=== PATIENT | female | born 1975 | race Caucasian/White ===

== ENCOUNTER 2021-04-17 15:52 | Outpatient (CLI) | payer OTHER, SELFPAY ==
--- NOTE | 2021-04-17 16:07 | XRR_ITS ---
PROCEDURE INFORMATION: Exam: XR Chest Exam date and time: 04/17/2021 4:07 PM Age: 46 years old Clinical indication: Cough and wheezing; Additional info: Cough, wheezing TECHNIQUE: Imaging protocol: XR of the chest. Views: 2 views. COMPARISON: No relevant prior studies available. FINDINGS: Lungs: Hyperinflation and mild interstitial prominence, without acute airspace disease. Pleural spaces: No pleural effusion. Heart/Mediastinum: Normal configuration of the heart. Bones/joints: Mild degenerative change. XR/XR chest 2V* [id number] IMPRESSION: Hyperinflation and mild interstitial prominence, without acute airspace disease.
== END 2021-04-17 15:53 | disposition home or self-care (01) ==
PROVIDERS: PCP Nurse Practitioner Family; Visit Provider Otolaryngology
DX: J30.1 Allergic rhinitis due to pollen (principal); R05 Cough; R06.2 Wheezing
CPT/HCPCS: 71046

== ENCOUNTER → 2021-05-19 18:50 | Outpatient (BNVA) | payer OTHER, SELFPAY | PROVIDERS: PCP Nurse Practitioner Family; Visit Provider Registered Nurse Neonatal Intensive Care | DX: Z20.822 Contact with and (suspected) exposure to COVID-19 (principal) | CPT/HCPCS: 87635 ==

== ENCOUNTER → 2023-05-05 09:25 | Outpatient (BNVA) | payer OTHER, SELFPAY | PROVIDERS: PCP Nurse Practitioner Family; Referring Provider Nurse Practitioner Family; Visit Provider Student in an Organized Health Care Education/Training Program | DX: M79.642 Pain in left hand (principal); R22.32 Localized swelling, mass and lump, left upper limb | CPT/HCPCS: 73130 ==

== ENCOUNTER 2023-05-21 07:47 | Day surgery (SDC) | payer OTHER, SELFPAY ==
[2023-05-21] VITALS (7 sets, daily range): BP systolic 120–147; BP diastolic 59–79; PULSE 43–63; RESP 15–20; TEMP 36.1–36.3; O2SAT 97–100
--- NOTE | 2023-05-21 08:03 | W.PM.OPSUD ---
Surgery/Procedure H&P Update DATE OF PROCEDURE: May 21, 2023 DATE H&P PERFORMED: 05/05/23 CHANGES TO PREVIOUS DOCUMENTATION: None. No change in HPI visit from 05/05/2023. Patient has a left small finger mass/cyst. She understands needs and outs procedure the risk benefits and complications alternatives with surgery given that this has had continued pain and increased in size she wishes to have this removed. Understanding risk benefits complication alternatives with surgery elects proceed with surgical intervention all questions answered. Plan to proceed with a left small finger mass excision. PREOP DIAGNOSIS: Left Small Finger mass PRIMARY INDICATION FOR PROCEDURE: Left small finger mass/cyst PLANNED PROCEDURE: Operation Date: 05/21/23 09:20 Proposed Procedures p Left small finger mass excision 60049, R22.32(Left) - Jake Campbell DO
[2023-05-21] MEDS: sodium chloride 0.9% 1,000 ML 30 ML IV (08:14)
[2023-05-21] MEDS: ketorolac 30 mg/mL INJ IVP (08:15)
[2023-05-21] MEDS: acetaminophen 1,000 MG/100 ML PIGGYBACK 400 MG IV (08:16)
--- NOTE | 2023-05-21 08:20 | ANES.PREANE2 ---
Pre-Anesthetic Assessment Height/Weight: Height 1.65 m Weight 85.729 kg Temp Pulse Resp BP Pulse Ox O2 Del Method 97.3 F L 63 16 124/65 98 Room Air 05/21/23 07:58 05/21/23 07:58 05/21/23 07:58 05/21/23 07:58 05/21/23 07:58 05/21/23 07:58 Preop Diagnosis: Left Small Finger mass Operation Date: 05/21/23 09:20 Proposed Procedures p Left small finger mass excision 95211, R22.32(Left) - Jake Berks, DO Familial anesthetic complications: None Was Beta John taken within 24 hours: N/A Was Clonidine taken within 24 hours: N/A Last intake: Intake Last Liquid Date 05/20/23 Last Liquid Time 20:30 Last Solid Date 05/20/23 Last Solid Time 18:30 Social No alcohol and No tobacco Exam alert, oriented x 3, clear to auscultation bilaterally and regular rate & rhythm Airway Mallampati: Class II Dentition: full CV/HEM Hypertension Anesthetic Plan ASA status: 2 Anesthesia: MAC Risk of > 500 ml blood loss (7ml/kg in children): No Medications/Allergies Home Medications Medication Instructions Recorded Confirmed Last Taken Type cetirizine 10 mg capsule (Zyrtec) 10 mg PO BID PRN allergy 01/24/23 05/21/23 05/20/23 History citalopram 10 mg tablet (Celexa) 10 mg PO DAILY 01/24/23 05/21/23 05/20/23 History fluticasone propionate 50 2 spray intranasal DAILY 01/24/23 05/21/23 05/20/23 History mcg/actuation nasal spray,suspension hydrochlorothiazide 12.5 mg capsule 12.5 mg PO DAILY 01/24/23 05/21/23 05/20/23 History ondansetron 4 mg disintegrating 4 mg PO Q8H PRN nausea and 05/21/23 Unknown Rx tablet vomiting 3 days #9 tabs tramadol 50 mg tablet 50 mg PO Q6H PRN pain #20 tabs 05/21/23 Unknown Rx Allergies Allergy/AdvReac Type Severity Reaction Status Date / Time No Known Allergies Allergy Verified 05/05/23 09:39 PFSH Anesthesia Female Reproductive History Date of last menstrual period: 04/23/23 Data Anesthesia Cardiac Studies: No Data to Display
[2023-05-21 08:27] LABS: OR HCG Qualitative Urine Negative (Negative)
[2023-05-21] MEDS: ceFAZolin 2,000 MG in sodium chloride 0.9% (plus) 50 ML 100 MG IV (08:42)
[2023-05-21] MEDS: ROPivacaine 0.5% SDV 30 mL 25 MG INJECTION (09:00)
[2023-05-21] MEDS: BUPivacaine 0.5% INJ 10 mL 5 ML INJECTION (09:00)
--- NOTE | 2023-05-21 09:31 | PM.OP2 ---
Brief Operative Note Date of procedure: 05/21/23 Pre-op diagnosis: Left small finger mass Post-op diagnosis: same Procedure Done: Left small finger mass excision Surgeon: Jake Campbell Estimated blood loss (mL): 2 Complications: None Post-op Plan: Patient taken to PACU in stable condition recovering well pain controlled. We will see appropriate discharge instructions as well as pain medication postoperatively. We will follow-up in the orthopedic office in 2 weeks. Condition: stable Disposition: same day Coding Level of Care Code Acute Code for Albina Beckman
--- NOTE | 2023-05-21 09:31 | PM.PACU ---
PACU note Narrative: Patient taken to PACU in stable condition recovering well. Dressing on in place clean dry and intact to the left hand. Left small fingers warm well-perfused brisk capillary refill less than 2 seconds able to wiggle her fingers. She does have decreased sensation secondary to local anesthesia. Exam: awake Disposition: discharged
--- NOTE | 2023-05-21 09:32 | PM.OP ---
Operative Report Date of procedure: May 21, 2023 Surgeon: Jake Campbell DO Procedure: Post-op diagnosis: Same Procedure done: Left small finger?cyst/mass excision(1 cm x 1 cm x 0.5 cm) Surgeon: Jake Campbell DO Estimated blood loss: 2cc Tourniquet time 11mins Complications: None Condition: stable Disposition: same day Brief History: Patient's been seen and worked up in the outpatient setting and findings consistent with preoperative diagnosis of left small finger mass/cyst.? Patient is failed conservative treatment.? Continues to have pain associated with mass/cyst.? We talked about treatment options nonoperative versus operative intervention.? ?Patient understands the risk benefits complication alternatives of surgical nonsurgical treatment options.? Understanding his risks with surgery patient elects proceed with surgical intervention.? Consent obtained in the office.? Here today to proceed with surgical intervention.? All questions answered. Procedure: Patient was seen and evaluated in the preoperative holding area.? Consent was reviewed and signed with patient.? Seen evaluated by Anesthesia Department.? Once cleared for surgery was brought back to the operative suite.? Placed in supine position on the OR table all bony prominences well-padded patient properly secured to the bed.? Patient's left arm was then placed to the armboard.? A nonsterile tourniquet applied to the left upper arm.? Patient's left upper extremity was then prepped and draped in standard orthopedic fashion.? Final timeout performed.? Patient received appropriate preoperative antibiotics. Esmarch tourniquet was used exsanguinate the left upper extremity tourniquet insufflated to 250 mmHg. Under sterile aseptic technique local digital block was performed to the left small finger.? Once appropriately anesthetized a standard oblique incision was made centering over cyst/mass over the volar aspect of P1.? Sharp scalpel incision was made only through skin and then switched to Littler dissection scissors and spread longitudinally directly over the flexor tendon sheath.? I then mobilized both radially and ulnarly and Kasdan retractors were used and placed by my licensed loan officer assistant to protect neurovascular bundle.? I encountered the cyst, this was mobile and not adhered to the flexor tendon sheath I then utilized my dissection scissors and all directions around and utilized bipolar cautery to transect the cyst from its base off of the flexor tendon sheath there was no disruption of the flexor tendons or any inherits or bony involvement.? The cyst/mass was then removed and then sent to pathology for evaluation.? At this point thorough irrigation was performed.? Tourniquet deflated hemostasis satisfactory with bipolar.? I then subsequently closed the incision with interrupted nylon suture.? Xeroform 4 x 4's, Kerlix and an Ronn wrap was applied for a bulky soft dressing.? Patient was then subsequently awakened from anesthesia and taken to PACU in stable condition tolerated procedure without issues. Disposition: Patient taken back in stable condition recovering well.? Patient will receive appropriate discharge instruction as well as pain medication postoperatively.? Patient to follow-up with me in the office in 2 weeks for repeat evaluation and incision check.? Patient understands that any questions or concerns and contact the office.? All questions answered.
--- NOTE | 2023-05-21 09:53 | SUR.PHASEI ---
0953 Dr Hopkins notified pts heart rate in the 41-45 range. ordered Ekg 12 lead. Order placed in computer and resp notified.
--- NOTE | 2023-05-21 09:54 | ECG_ITS ---
[facility] Test Date: 2023-05-21 Pat Name: Deborah Joe Department: Room: Gender: Female Help Desk Agent: : [id number] Requested By: Lay Hopkins Order Number: [id number] Teja MD: Padmini Guzman M.D. Measurements Intervals [place] Rate: 41 P: 58 MS: 215 QRS: 57 QRSD: 90 T: 55 QT: 496 QTc: 411 Interpretive Statements SINUS BRADYCARDIA WITH FIRST DEGREE AV BLOCK No previous ECG available for comparison Electronically Signed On 05-21-2023 21:22:27 CDT by Padmini Guzman M.D. [id number]
--- NOTE | 2023-05-21 11:22 | ANE.PACU2 ---
Inpatient post-anesthesia follow up: Airway intact: Yes Vital signs: Temperature 97.2 F Pulse Rate 47 Respiratory Rate 16 Blood Pressure 147/67 Pulse Oximetry 100 Oxygen Delivery Me thod Room Air Oxygen Flow Rate 6 Fraction of Inspir ed Oxygen Hydration adequate: Yes Nausea and vomiting: No Pain level: 1 Mental status: Baseline Additional Comments: HR in 50s, patient remains asymptomatic. Instructed to return to ER if any symptoms of dizziness or lightheadedness arise
== END 2023-05-21 11:00 | disposition home or self-care (01) ==
PROVIDERS: Anesthesiology; PCP Nurse Practitioner Family; Visit Provider Student in an Organized Health Care Education/Training Program
PROC: (CPT 26160; principal; 2023-05-21 09:10)
DX: R22.32 Localized swelling, mass and lump, left upper limb (principal); I10 Essential (primary) hypertension
CPT/HCPCS: 26160; 84703; 88304; 93005; J0131; J0690; J1885; J2250; J2704; J2795; J3490; J7030